=== PATIENT | female | born 1990 | race American Indian/Alaskan Native ===

== ENCOUNTER → 2018-01-26 | Outpatient (CLI) | payer OTHER ==
[~2018-01-26] MED LIST: ALB18R INH; IVER3TAB PO; NAPR375T44 PO; allergy
[2018-01-26 09:52] LABS: PLATELET COUNT, AUTOMATED 318 K/uL (150-450)
[2018-01-26 10:34] LABS: LDL CHOLESTEROL 113 mg/dl
== END ==
LOC: LAB 09:20
PROVIDERS: ATTEND Nurse Practitioner Family
DX: Z00.00 Encounter for general adult medical examination without abnormal findings (principal); N83.209 Unspecified ovarian cyst, unspecified side; R53.83 Other fatigue; N91.2 Amenorrhea, unspecified
CPT/HCPCS: 36415; 82040; 82247; 82310; 82374; 82435; 82465; 82565; 82670; 82947; 83001; 83002; 83036; 83718; 84075; 84132; 84155; 84295; 84403; 84443; 84450; 84460; 84478; 84520; 85025